=== PATIENT | female | born 1985 | race Hispanic/Latino ===

== ENCOUNTER 2018-10-31 17:45 | Emergency (ER) | payer SELFPAY ==
[2018-10-31 19:06] LABS: Bilirubin Negative (Negative); Blood, Urine Negative (Negative); Clarity CLEAR (Clear); Glucose, Urine (Dipstick) Negative (Negative); Leukocyte Negative (Negative); Nitrite Negative (Negative); Protein, Urine (Dipstick) Negative (Neg-Trace); Specific Gravity, Urine 1.004 (1.002-1.036); Urobilinogen 0.2 mg/dL (0.2-1.0)
== END 2018-10-31 20:06 | disposition home or self-care (01) ==
LOC: ERS 17:45
DX: O99.511 Diseases of the respiratory system complicating pregnancy, first trimester (principal); J02.9 Acute pharyngitis, unspecified; Z3A.13 13 weeks gestation of pregnancy
CPT/HCPCS: 81003; 87081; 87430; 99283

== ENCOUNTER 2019-04-14 18:03 | Day surgery (SDC) | payer OTHER ==
[2019-04-14 18:51] VITALS: BP 148/83; TEMP 98.5; BMI 35.3
--- NOTE | 2019-04-14 19:15 | PDOC.FPROB ---
Addendum entered and electronically signed by Kal Smith MD 04/14/19 21:39 : Reviewed case and documentation with internet sourcer physician. Agreed with documentation and plan below with no additions. Original Note: FMR OB H&P: HPI - History of Present Illness Chief Complaint: Elevated BP in clinic History of Present Illness: This is a 33 yo @ 36.3wks by 13wk US presenting today for elevated BPs in clinic. Patient reports MENDEZ yesterday that went away without taking any medications. She endorses +FM, denies LOF, vision changes, vaginal bleeding or discharge, LE edema, or dysurai. Reports that her right hand feels tight, but denies any numbness or tingling. She denies having any problems with blood pressure in the past. Primary Care Physician: SAGE FMR OB H&P: Current - Care : 4 Para: 3003 Gestational age: 36.3 Due date: 05/09/19 Dating Criteria: 13.4wk US Course/Complications: fibroid seen on initial US. NO comment on repeat. - OB Labs Blood type: O RH: positive Antibody Screen: negative HIV: negative RPR: negative HepBsAg: negative Rubella: immune Gonorrhea: negative Chlamydia: negative 1 hour gtt: 138 GBS: negative H&H: WNL FMR OB H&P: History - Past Medical History PMH: none - OB History OB History: x3 in [facility] - BABY COUNSELOR History BABY COUNSELOR History: none - Surgical History Sx History: tonsillectomy - Social History Social History: unremarkable - Family History Family History: noncontributory FMR OB H&P: Medications - Current Home Medications: Medication Instructions Recorded Confirmed Type No Known 04/14/19 04/14/19 History Allergies/Adverse Reactions: Allergies Allergy/AdvReac Type Severity Reaction Status Date / Time No Known Allergies Allergy Unverified 04/14/19 18:39 FMR OB H&P: ROS - Review of Systems General: denies: fever/chills, weight/appetite/sleep changes, night sweats, fatigue Eyes: denies: vision changes, double vision, scotomas, floaters ENT: denies: nasal congestion, rhinorrhea Cardiovascular: denies: chest pain, palpitation, edema Respiratory: reports: shortness of breath. denies: cough, congestion, exercise intolerance Gastrointestinal: denies: abdominal pain, indigestion, bloating, cramping, nausea, vomiting, diarrhea, constipation Genitourinary (Female): denies: dysuria, hematuria, vaginal discharge, vaginal bleeding, contractions Musculoskeletal: denies: pain, stiffness, tenderness, redness, swelling Neurologic: denies: numbness, weakness Integumentary: denies: rash FMR OB H&P: Vital Signs - Maternal Vital signs: Vital Signs - First Documented Temp Pulse Resp BP 98.5 F 68 18 148/83 H 04/14/19 18:20 04/14/19 18:20 04/14/19 18:20 04/14/19 18:20 - Heart Tones Baseline: 130 Variability: moderate Acceleration: present Deceleration: absent Category: category 1 FMR OB H&P: Physical Exam - Physical Exam General: NAD, awake, alert and oriented HEENT: normocephalic and atraumatic, PERRLA, EOMI, MMM, grossly normal vision, grossly normal hearing Neck: supple, FROM, trachea midline Chest: non-tender to palpation, no lesions Heart: RRR, normal S1/S2, no murmurs/rubs/gallops, pulses present General: CTAB, no respiratory distress, good air movement, no rales/rhonchi, no wheezing, no retractions Abdomen: soft, gravid, fundus(cm), non-tender, bowel sound present Musculoskeletal: normal gait and station, FROM in all four extremities Skin: no rash, good tugor, capillary refill <2 seconds Psychiatric: intact recent and remote memory FMR OB H&P: A/P Disposition: Elevated BP - Will monitor VS - most recent 148/79 - Will do workup for PreE including: CBC, CMP, UrPr/Cr, Uric acid - No symptoms currently of pre E - PO hydration Dispo: will f/u results - If results are neg, patient can be d/c home, if positive for PreE will induce labor Case discussed with Dr. Giles Patient had neg Urine protein/cr. Mildly elevated uric acid. CBC/CMP wnl. Patient w/ BPs in 130s-140s/70-80s. She did have one elevated of 160/90, this was due to patient position and not a true value. Patient given ER precautions including preE symptoms such as headache, vision changes, swelling of extremities/face, SOB, chest. All questions were asked and answered. Patient acknowledged understanding. Pipe Bending Machine Operator used. Patient discharged home w/ close f /u outpatient. Discussion: Date/Time: 04/14/191913 This H&P was discussed with [] and [] who agree with the above documentation and plan. Addendum - Attending - Attending Attestation Date/Time: 04/15/19717 I personally evaluated the patient and discussed the management with Dr. Rodriguez. I agree with the History, Examination, Assessment and Plan documented above.
[2019-04-14 19:34] LABS: #Eosinphils 0.4 thou/uL (0.0-0.7); #Lymphocytes 2.2 thou/uL (1.20-3.40); #Monocytes 0.5 thou/uL (0.11-0.59); #Neutrophils 5.3 thou/uL (1.40-6.50); %Basophils 0.3 % (0.0-1.0); %Eosinophils 4.9 % (0.0-10.0); %Lymphocytes 26.1 % (21.0-51.0); %Monocytes 6.3 % (0.0-10.0); %Neutrophils 62.4 % (42.0-75.0); Hemoglobin 12.4 g/dL (12.0-16.0); Mean Corpuscular HGB CONC 34.3 g/dL (32.0-36.0); Mean Corpuscular Hemoglobin 27.4 pg (27.0-31.0); Mean Corpuscular Volume 79.9 fL (78.0-98.0); Mean Platelet Volume 10.1 fL (7.4-10.4); Platelet Count 169 thou/uL (130-400); RBC Distribution Width 13.6 % (11.5-14.5); Red Blood Cell (RBC) Count 4.51 mill/uL (4.20-5.40); White Blood Cell (WBC) Count 8.5 thou/uL (4.8-10.8)
[2019-04-14 20:06] LABS: ALT (SGPT) 10 U/L (8-55); AST (SGOT) 17 U/L (5-34); Albumin 3.3 g/dL (3.5-5.0); Alkaline Phosphatase 210 U/L (40-150); Anion Gap 12 mmol/L (10-20); Bilirubin, Total 0.2 mg/dL (0.2-1.2); Calc. Creatinine Clearance 149 mL/min (70-130); Calcium 9.3 mg/dL (7.8-10.44); Carbon Dioxide 17 mmol/L (22-29); Chloride 111 mmol/L (98-107); Estimated GFR-MDRD Greater than 90; Globulin 3.3 g/dL (2.4-3.5); Glucose 84 mg/dL (70-105); Potassium 3.7 mmol/L (3.5-5.1); Protein, Total 6.6 g/dL (6.0-8.3); Sodium 136 mmol/L (136-145); Uric Acid 6.8 mg/dL (2.6-6.0)
[2019-04-14 20:07] LABS: BUN (Urea Nitrogen) 14 mg/dL (7.0-18.7)
[2019-04-14 20:15] LABS: Creatinine, Urine Less than 20.00 mg/dL (47-110); Protein, Urine Random Quant Less than 10 mg/dL (1-14)
== END 2019-04-14 21:11 | disposition home or self-care (01) ==
LOC: L&D/OP 18:03
PROVIDERS: ATTEND Obstetrics & Gynecology
DX: O99.89 Other specified diseases and conditions complicating pregnancy, childbirth and the puerperium (principal); R03.0 Elevated blood-pressure reading, without diagnosis of hypertension; Z3A.36 36 weeks gestation of pregnancy
CPT/HCPCS: 36415; 80053; 82570; 84156; 84550; 85025; 99285

== ENCOUNTER 2019-04-21 18:04 | Inpatient (IN) | payer MEDICAID, OTHER ==
--- NOTE | 2019-04-21 19:35 | PDOC.FPROB ---
FMR OB H&P: HPI - History of Present Illness Chief Complaint: Elevated BPs History of Present Illness: This is a 33 yo at 37.3 weeks by 13.4 wk US presents from [facility] with cc of elevated BPs. Documented pressures at [facility] include 140/90 and 140/96. is uncomplicated at this point. Today she endorses a headache that started this morning. She denies headaches in the past during this or complications in her previous pregnancies. She also reports her eyes burning with no nasal congestion or sneezing. She does report increased swelling in her feet and legs in the last few days. She reports FM and denies contractions, LOF , vaginal bleeding, or syncope, changes in her vision. FMR OB H&P: Current - Care : 4 Para: 3003 Gestational age: 37.3 Due date: 05/09/19 Dating Criteria: 13.4 wk us Course/Complications: None - OB Labs Blood type: O RH: positive Antibody Screen: negative HIV: negative RPR: negative HepBsAg: negative Rubella: immune Gonorrhea: negative Chlamydia: negative 1 hour gtt: 138 GBS: negative H&H: 12.4/36.1 on 04/14/19 FMR OB H&P: History - Past Medical History PMH: none - OB History OB History: x3 in [facility] - PSYCH TECH History PSYCH TECH History: none - Surgical History Sx History: Tonsillectomy - Social History Social History: noncontributory - Family History Family History: Noncontributory FMR OB H&P: Medications - Current Home Medications: Medication Instructions Recorded Confirmed Type No Known 04/14/19 04/21/19 History Allergies/Adverse Reactions: Allergies Allergy/AdvReac Type Severity Reaction Status Date / Time No Known Allergies Allergy Unverified 04/14/19 18:39 FMR OB H&P: ROS - Review of Systems General: denies: fever/chills, weight/appetite/sleep changes, night sweats, fatigue Eyes: reports: others (burning). denies: eye pain, vision changes, double vision ENT: reports: sore throat. denies: nasal congestion, rhinorrhea Cardiovascular: reports: chest pain, edema. denies: palpitation Respiratory: denies: cough, congestion, shortness of breath Gastrointestinal: denies: abdominal pain, indigestion, bloating, nausea, vomiting Genitourinary (Female): denies: incontinence, dysuria, hematuria, vaginal pain, vaginal bleeding, vaginal pressure Musculoskeletal: denies: pain, decrease range of motion Neurologic: denies: numbness, syncope Integumentary: denies: itching, rash Hematologic/Lymphatic: denies: prolonged or excessive bleeding Psychological: denies: depression, anxiety FMR OB H&P: Vital Signs - Maternal Vital signs: Vital Signs - First Documented Temp Pulse Resp BP 98.3 F 83 18 113/73 04/21/19 18:36 04/21/19 18:36 04/21/19 18:36 04/21/19 18:36 - Heart Tones Baseline: 150 Variability: moderate Acceleration: present Deceleration: absent (Reactive NST) FMR OB H&P: Physical Exam - Physical Exam General: NAD, awake, alert and oriented HEENT: normocephalic and atraumatic, EOMI, MMM Neck: FROM, trachea midline Chest: non-tender to palpation Heart: RRR, normal S1/S2, no murmurs/rubs/gallops, other (1+ pitting edema in feet to mid calf) General: CTAB, no respiratory distress, no wheezing Abdomen: soft, gravid, non-tender, bowel sound present Musculoskeletal: normal gait and station, pulses present Neurological: cranial nerves II through XII intact Skin: good tugor, capillary refill <2 seconds Lymphatic: no unusual bruising or bleeding Psychiatric: intact recent and remote memory, good judgement and insight FMR OB H&P: A/P Disposition: This is a 33 yo at 37.3 by 13.4wk US Elevated BP, pre-eclampsia rule out -Monitor BP -Pending CBC, CMP, Uric acid, urine protein/creatinine ratio -No previous diagnosis of pre-eclampsia or other complications during her previous pregnancies Discussion: Date/Time: 04/21/191930 This H&P was discussed with Dr. Reid and Dr. Marinelli who agree with the above documentation and plan. Addendum - Attending - Attending Attestation Date/Time: 04/21/192007 I personally evaluated the patient and discussed the management with Dr. Olivo. I agree with the History, Examination, Assessment and Plan documented above.
[2019-04-21 19:57] LABS: #Eosinphils 0.5 thou/uL (0.0-0.7); #Lymphocytes 1.9 thou/uL (1.20-3.40); #Monocytes 0.4 thou/uL (0.11-0.59); %Basophils 0.1 % (0.0-1.0); %Eosinophils 6.1 % (0.0-10.0); %Lymphocytes 24.5 % (21.0-51.0); %Monocytes 4.5 % (0.0-10.0); %Neutrophils 64.8 % (42.0-75.0); Mean Corpuscular HGB CONC 34.9 g/dL (32.0-36.0); Mean Corpuscular Hemoglobin 27.9 pg (27.0-31.0); Mean Corpuscular Volume 80.1 fL (78.0-98.0); Mean Platelet Volume 10.3 fL (7.4-10.4); Platelet Count 152 thou/uL (130-400); RBC Distribution Width 13.7 % (11.5-14.5); Red Blood Cell (RBC) Count 4.31 mill/uL (4.20-5.40); White Blood Cell (WBC) Count 7.8 thou/uL (4.8-10.8)
[2019-04-21 20:16] LABS: Anion Gap 15 mmol/L (10-20); BUN (Urea Nitrogen) 12 mg/dL (7.0-18.7); Calc. Creatinine Clearance 0 mL/min (70-130); Carbon Dioxide 16 mmol/L (22-29); Chloride 108 mmol/L (98-107); Potassium 3.8 mmol/L (3.5-5.1); Sodium 135 mmol/L (136-145)
[2019-04-21 20:17] LABS: ALT (SGPT) 8 U/L (8-55); AST (SGOT) 16 U/L (5-34); Albumin 3.1 g/dL (3.5-5.0); Alkaline Phosphatase 230 U/L (40-150); Bilirubin, Total 0.2 mg/dL (0.2-1.2); Calcium 8.3 mg/dL (7.8-10.44); Estimated GFR-MDRD 86; Globulin 3.2 g/dL (2.4-3.5); Glucose 108 mg/dL (70-105); Protein, Total 6.3 g/dL (6.0-8.3); Uric Acid 7.4 mg/dL (2.6-6.0)
[2019-04-21 20:37] VITALS: BMI 33.5
[2019-04-21 20:49] LABS: Creatinine, Urine 143.11 mg/dL (47-110)
[2019-04-21] MEDS ORDERED: Lidocaine 1% (PF) 30 ML VIAL SC PRN (22:16)
[2019-04-21] MEDS ORDERED: Promethazine HCl 25 MG/ML VIAL IM PRN (22:16)
[2019-04-21] MEDS ORDERED: Ondansetron PF 4 MG/2 ML Vial IVP PRN (22:16)
[2019-04-21] MEDS ORDERED: NS / Oxytocin 40 units/1000ml 1,000 ML IV PRN (22:16)
--- NOTE | 2019-04-21 22:16 | PDOC.EVN ---
Event Note - Event Note Event Note: This is a 33 yo at 37.3 by 13.4wk US presenting for elevated BP Pre-eclampsia -Elevated BPs, continue monitoring -Highest documented is 141/85 -Plt 152, AST/ALT/Bili wnl -Urine protein creatinine ratio of 0.37, uric acid of 7.4, diagnosing pt with pre-eclampsia -No previous diagnosis of pre-eclampsia or other complications during her previous pregnancies -No previous c sections -SVE shows 3 at 21:41 -Will be starting a cytotec induction tonight term IUP -Plan as above -Fetus is vertex with anterior placenta Plan discussed with Dr. Reid Addendum - Attending - Attending Attestation Date/Time: 04/21/19 8702 I personally evaluated the patient and discussed the management with Dr. Olivo. Now at 37+ weeks with elevated BPs 140/90's in office today and lab showing proteinuria and elevated uric acid. Will proceed with cervical ripening and delivery. I agree with the History, Examination, Assessment and Plan documented above.
[2019-04-21 22:57] LABS: Hemoglobin 12.5 g/dL (12.0-16.0); Mean Corpuscular HGB CONC 33.6 g/dL (32.0-36.0); Mean Corpuscular Hemoglobin 27.2 pg (27.0-31.0); Mean Corpuscular Volume 81.1 fL (78.0-98.0); Mean Platelet Volume 10.4 fL (7.4-10.4); Platelet Count 172 thou/uL (130-400); White Blood Cell (WBC) Count 8.7 thou/uL (4.8-10.8)
[2019-04-21 23:33] LABS: HBSAg Index 0.74 S/CO (0-0.99); Hep B Surf Ag Non-Reactive S/CO (NonReactive); Syphilis Antibody Nonreactive (Nonreactive); Syphilis Antibody Index 0.03 S/CO (<1.00 Non-Reactive)
[2019-04-21] MEDS: Lactated Ringer's 1,000 ML IV SCH (23:35)
[2019-04-21] MEDS: Misoprostol 100 MCG TAB VAG SCH (23:35)
--- NOTE | 2019-04-22 00:52 | PDOC.LDPN ---
Labor & Delivery Progress Note - Subjective Subjective: comfortable, no concerns - Objective Vital signs reviewed and normal: yes General: NAD, resting Uterine fundus: non tender SVE: /-3 Dilation: 1 Effacement: 50% Station: -3 FHT: category 1 (baseline 150, accels present, no decels) Plan: continue plan of care -: This is a 33 yo at 37.3 by 13.4wk US presenting for elevated BP Pre-eclampsia -Elevated BPs, continue monitoring -Plt 152, AST/ALT/Bili wnl -Urine protein creatinine ratio of 0.37, uric acid of 7.4, diagnosing pt with pre-eclampsia -No previous diagnosis of pre-eclampsia or other complications during her previous pregnancies -No previous c sections -Cytotec started at 2335 with check of /-3 - Will recheck at [address] a second cytotec at that time -No severe range pressures -Minimal contractions, cat 1 strip term IUP -Plan as above -Fetus is vertex with anterior placenta Addendum - Attending - Attending Attestation Date/Time: 04/22/19 4317 I personally evaluated the patient and discussed the management with Dr. Olivo. I agree with the Assessment and Plan documented above.
[2019-04-22] MEDS: Lactated Ringer's 1,000 ML IV SCH ×2 (04:25→14:39)
[2019-04-22] MEDS ORDERED: Magnesium Sulfate 20 gm/500 ml 20 GM/500 ML BAG ONE (05:05)
[2019-04-22] MEDS ORDERED: Calcium Gluc 4.6 MEQ/10 ML (100 MG/ML) SLOW IVP PRN (05:06)
[2019-04-22] MEDS ORDERED: Labetalol HCl 100 MG/20 ML VIAL SLOW IVP PRN (05:07)
[2019-04-22] MEDS ORDERED: Magnesium Sulfate 20 gm/500 ml 20 GM/500 ML BAG IVPB SCH (05:15)
[2019-04-22] MEDS ORDERED: Magnesium Sulfate 20 GM/WATER 500 ML BAG IVPB SCH (05:15)
[2019-04-22] MEDS: Misoprostol 100 MCG TAB VAG SCH ×4 (05:30→18:57)
[2019-04-22] MEDS ORDERED: NS / Oxytocin 40 units/1000ml 1,000 ML IV PRN (05:31)
--- NOTE | 2019-04-22 05:38 | PDOC.EVN ---
Event Note - Event Note Event Note: CTSP for BPs 160-170's diastolic. Has had 1 dose of Cytotec. FHTs stable. Ucs q 2-4 mins. Plan: Start MgSo4 and tx. with Labetalol as needed. Start pitocin.
[2019-04-22] MEDS ORDERED: NS w/ Oxytocin 10 units 500 ML IV SCH (05:45)
[2019-04-22] MEDS ORDERED: Dextrose 5%-Lactated Ringers 1,000 ML IV SCH (10:15)
[2019-04-22] MEDS ORDERED: Fioricet 325/50/40 mg Tablet PO PRN (10:59)
--- NOTE | 2019-04-22 11:01 | PDOC.LDPN ---
Labor & Delivery Progress Note - Subjective Subjective: comfortable - Objective Abnormal vital signs: elevated BPs, no severe range since magnesium General: NAD, resting Dilation: 3 Effacement: 50% Station: -2 FHT: category 2 (120/minimal-mod) [place] contractions every: 2-4min Plan: continue plan of care, labor augmentation -: This is a 33 yo at 37.3 by 13.4wk US presenting for elevated BP Pre-eclampsia -Met criteria with ur/pr ratio of 0.37, elevated BPs -CBC/CMP wnl -no prior hx of preE -cytotec x1 at 2330 -No severe range pressures, continue monitoring -FHT: Cat I due to bouts of minimal variability. Start LRD5 and CLD -Fioricet for headache -Magnesium for seizure ppx -Recheck in 4 hours -Declines epidural at this time term IUP -Plan as above -Fetus is vertex with anterior placenta -No prior c sections Addendum - Attending - Attending Attestation Date/Time: 04/23/19 1532 I personally evaluated the patient and discussed the management with Dr. Nino I agree with the History, Examination, Assessment and Plan documented above with any addition or exceptions noted below.
--- NOTE | 2019-04-22 11:05 | PDOC.EVN ---
Event Note - Event Note Event Note: Magnesium check @1100 S: Pt reports MENDEZ, will give Fioricet. Denies vision changes, problems breathing , lower leg swelling more than normal BPs: no severe range since starting Mg. SBP 120-150 PE: NAD, RRR, CTAB, Reflexes 2+, no focal movement or neuro deficits UO: ~800cc/hr Plan: Continue fluids, Mg for seizure ppx, fioricet for headache. Monitor UO and clinical status.
[2019-04-22] MEDS ORDERED: NS / Oxytocin 40 units/1000ml 1,000 ML ONE (13:55)
[2019-04-22] MEDS ORDERED: Lidocaine 1% (PF) 30 ML VIAL ONE (13:55)
--- NOTE | 2019-04-22 14:41 | PDOC.EVN ---
Event Note - Event Note Event Note: Vaginal Delivery Note Delivering Physician: Trerence Emmanuel Tomek Attending: Dr. Bergman Procedure: Spontaneous Vaginal Delivery Anesthesia: QBL: Pending Pre-op Diagnosis: 1. Term intrauterine in labor 2. PreEclampsia with severe features Post-op Diagnosis: 1. Term intrauterine , delivered 2. same as above Indications: A 33y/o female presented for elevated blood pressures. Due to presence of preE with severe features, cytotec induction started. Delivery Note: This is 33yo F now 4004 @ 37.4 wks who delivered a viable M/F on 04/22/19 at 1513 Following an uneventful antepartum course , a vigorous M was delivered over an intact perineum in the OA position. Anterior Shoulder and then remainder of the body delivered. No nuchal cord. The head was held down and mouth and nares were bulb suctioned. Cord clamped (after delayed cord clamping?) and cut and cord blood collected. Placenta delivered intact (in the Cervantes/Manning presentation) with a 3 vessel cord noted. Fundal massage was performed and the fundus was firm. The cervix and vagina were inspected and found to have a second degree perineal laceration noted and repaired with 3-0 chromic in the usual fashion with good approximation and hemostasis after local anesthetic was injected at site. went to nursery in good condition for routine care. Apgars were 8/9 at 1 & 5 minutes, respectively. Patient tolerated delivery well and will continue Mg for next 12 hours, discontinue, monitor for 4-6 hours and if stable, transfer to I was present and supevising for the entire second and third stages of labor. I agree with the above documentation.
[2019-04-22] MEDS ORDERED: Calcium Gluconate 4.6 MEQ in Sodium Chloride 0.9% 100 ML IVPB PRN (16:09)
[2019-04-22] MEDS ORDERED: Bisacodyl 10 MG SUPP PR PRN ×2 (16:09→20:11)
[2019-04-22] MEDS ORDERED: Milk Of Magnesia 30 ML UDCUP PO PRN ×2 (16:09→20:11)
[2019-04-22] MEDS ORDERED: NS / Oxytocin 40 units/1000ml 1,000 ML IV SCH ×2 (16:15→20:15)
[2019-04-22] MEDS ORDERED: Ferrous Sulfate 325 MG TAB PO SCH (17:00)
--- NOTE | 2019-04-22 18:20 | PDOC.EVN ---
Event Note - Event Note Event Note: Magnesium check @1818 Pt denies MENDEZ, problems breathing, vision changes AVSS: no severe range BPs, averaging SBP range 120-140mmHg PE: RRR, CTAB, reflexes 2+ UO: Pending re-placement of lynn, prior to this UO adequate Plan -recheck in 4 hours
[2019-04-22] MEDS ORDERED: HYDROcodone/Acetaminophen 5/325 mg Tablet PO PRN (19:42)
[2019-04-22] MEDS ORDERED: Benzocaine-Menthol 82.5 ML CAN TOP PRN (20:11)
[2019-04-22] MEDS ORDERED: Lanolin Ointment 7 GM TUBE TOP PRN (20:11)
[2019-04-22] MEDS ORDERED: Docusate Calcium (SURFAK) 240 MG CAP PO SCH (21:00)
[2019-04-22] MEDS: Ibuprofen 800 MG TAB PO SCH (21:41)
[2019-04-22] MEDS: Docusate Calcium (SURFAK) 240 MG CAP PO SCH (21:41)
[2019-04-22] MEDS ORDERED: Ibuprofen 800 MG TAB PO SCH (22:00)
--- NOTE | 2019-04-23 02:43 | PDOC.OBPPN ---
FMR OB PN: Subj - Interval History Day: 1 Chief Complaint: 33 yo at 37.3 weeks by 13.4 wk US admitted for elevate BP Indentification: Induced for PreE, now s/p Interval History: C/o mild pain and gas. Ambulating, passing gas, voiding, maxime diet. FMR OB PN: Obj - Maternal Vital signs: Selected Entries 04/21/19 04/22/19 18:36 00:00 Temperature 98.3 F Pulse Rate 83 Blood Pressure 113/73 [Semi-Fowlers] Respiratory 18 Rate Oxygen Delivery Room Air Method FMR OB PN: Exam - Physical Exam General: NAD, awake, alert and oriented HEENT: normocephalic and atraumatic, PERRLA Heart: RRR, normal S1/S2 General: CTAB, no respiratory distress Abdomen: soft, gravid, fundus(cm) (at umbilicus) Skin: no rash, good tugor, capillary refill <2 seconds FMR OB PN: Data - Labs Lab results: Laboratory Results - last 24 hr 04/22/19 16:32 Magnesium 3.8 H FMR OB PN: A/P - Problem List (1) (normal spontaneous vaginal delivery) Current Visit: Yes Status: Acute Code(s): O80 - ENCOUNTER FOR FULL-TERM UNCOMPLICATED DELIVERY (2) Term delivered Current Visit: Yes Status: Acute Code(s): O80 - ENCOUNTER FOR FULL-TERM UNCOMPLICATED DELIVERY (3) Preeclampsia Current Visit: Yes Status: Acute Code(s): O14.90 - UNSPECIFIED PRE-ECLAMPSIA , UNSPECIFIED TRIMESTER Discussion: Date/Time: 04/23/19 0243 33 yo at 37.3 weeks by 13.4 wk US admitted for elevate BP, found to have PreE, now s/p induction and delivery via . sIUP, delivered -continue routine care -ibuprofen 800mg q8h jeremie, will send in script for patient -minimal bleeding, ambulating, tolerating normal diet, voiding, passing gas PreE- -mag stopped 6 hours . -continue to monitor bp's for severe range pressures -pressures overnight wnl. -pt can likely dc after 24 hours if pressures wnl. Dispo: ok for dc if pressures wnl 24 hours ; needs follow-up apt in one week for bp check Addendum - Attending - Attending Attestation Date/Time: 04/23/19 3609 I personally evaluated the patient and discussed the management with I agree with the History, Examination, Assessment and Plan documented above with any addition or exceptions noted below. Pt has no complaints this AM. No complaints. Pt BP have remained normal to mild. May DC home this pm if remains stable.
[2019-04-23] MEDS ORDERED: Simethicone Chewable 80 MG TAB PO PRN (04:13)
[2019-04-23] MEDS ORDERED: Simethicone Chewable 80 MG TAB PO SCH (04:15)
[2019-04-23] MEDS: Ibuprofen 800 MG TAB PO SCH ×2 (04:31→11:59)
[2019-04-23] MEDS ORDERED: Prenatal Vitamin 1 TAB PO SCH (09:00)
[2019-04-23] MEDS: Docusate Calcium (SURFAK) 240 MG CAP PO SCH (09:00)
[2019-04-23] MEDS ORDERED: Adacel (T-DAP) 0.5 ML SYRINGE IM ONE ×2 (09:00)
[2019-04-23] MEDS: Ferrous Sulfate 325 MG TAB PO SCH ×2 (11:59→18:04)
[2019-04-23 17:36] VITALS: BP 134/79; TEMP 98.1
== END 2019-04-23 18:37 | disposition home or self-care (01) | DRG 807 ==
LOC: L&D/OP 18:04 → L&D 04-22 00:27 → 3SW 04-22 20:54
PROVIDERS: ADMIT Obstetrics & Gynecology; ATTEND Obstetrics & Gynecology
PROC: 10E0XZZ Delivery of Products of Conception, External Approach (ICD-10-PCS; principal; 2019-04-22)
PROC: 0KQM0ZZ Repair Perineum Muscle, Open Approach (ICD-10-PCS; 2019-04-22)
PROC: 10907ZC Drainage of Amniotic Fluid, Therapeutic from Products of Conception, Via Natural or Artificial Opening (ICD-10-PCS; 2019-04-22)
PROC: 3E0P7VZ Introduction of Hormone into Female Reproductive, Via Natural or Artificial Opening (ICD-10-PCS; 2019-04-22)
PROC: 3E033VJ Introduction of Other Hormone into Peripheral Vein, Percutaneous Approach (ICD-10-PCS; 2019-04-22)
DX: O14.14 Severe pre-eclampsia complicating childbirth (principal); Z37.0 Single live birth; Z3A.37 37 weeks gestation of pregnancy; O70.1 Second degree perineal laceration during delivery
CPT/HCPCS: 36415; 51702; 80053; 82570; 83735; 84156; 84550; 85025; 86780; 86850; 86900; 86901; 87340; 99285; J2001; J2590; J3475